=== PATIENT | female | born 1990 | race African-American/Black ===

== ENCOUNTER 2016-10-02 06:23 | Inpatient (IN) ==
[2016-10-02] MEDS ORDERED: ONDANSETRON 4 MG/2 ML VIAL IV PRN (07:11)
[2016-10-02] MEDS ORDERED: MEPERIDINE 50 MG/1 ML VIAL IV PRN (07:11)
[2016-10-02] MEDS ORDERED: LACTATED RINGERS 1,000 ML IV SCH ×2 (07:30→10:00)
[2016-10-02 07:32] LABS: Basophils % 0.1 % (0.0-0.8); Eosinophils % 0.5 % (0.00-10.9); Hematocrit 41.5 VOL% (35.7-47.0); Immature Granulocytes % 0.7 %; Immature Granulocytes Absolute 0.05 #; Lymphocytes # 1.7 10*3/uL (1.4-4.0); Lymphocytes % 22.2 % (21.3-54.2); Mean Corpuscular HGB Conc 33.7 GM/DL (32-36); Mean Corpuscular Hemoglobin 32 PG (27-34); Mean Corpuscular Volume 94.3 FL (87-102); Mean Platelet Volume 11.3 FL (9.6-12.0); Monocytes # 0.6 10*3/uL (0.11-0.8); Monocytes % 7.8 % (1.7-12.7); Neutrophils # 5.2 10*3/uL (1.4-7.4); Neutrophils % 68.7 % (38.7-73.9); Platelet Count 191 T/CUMM (130-400); Red Cell Distribution Width 12.9 % (9.3-17.3); White Blood Count 7.6 T/CUMM (4-12)
[2016-10-02] MEDS ORDERED: DINOPROSTONE VAG GEL 10 MG SYRINGE VAG ONE (07:58)
[2016-10-02 08:01] LABS: Albumin 2.9 G/DL (3.4-5.0); Bilirubin,Total 0.9 MG/DL (0.2-1.0); Calcium 8.9 MG/DL (8.5-10.1); Osmolality,Calculated 274.4 MOS/KG (273-304); Total Protein 7.2 G/DL (6.4-8.3)
[2016-10-02] MEDS: OXYTOCIN/LR 20 UNIT/1,000 ML BAG IV SCH ×2 (09:35→17:49)
[2016-10-02] MEDS ORDERED: FAMOTIDINE 20 MG/2 ML VIAL IV ONE (09:43)
[2016-10-02] MEDS ORDERED: CITRIC ACID/SODIUM CITRATE 30 ML UDCUP PO ONE (09:43)
[2016-10-02] MEDS ORDERED: diphenhydrAMINE 50 MG/1 ML VIAL IV PRN ×2 (09:45)
[2016-10-02] MEDS ORDERED: PROMETHAZINE 25 MG/1 ML VIAL IM ONE (09:45)
[2016-10-02] MEDS ORDERED: ePHEDrine 50 MG/ML AMP IV PRN (09:45)
[2016-10-02] MEDS ORDERED: ONDANSETRON 4 MG/2 ML VIAL IV ONE (09:45)
[2016-10-02] MEDS ORDERED: hydrOXYzine HCL 25 MG/1 ML VIAL IM PRN (09:45)
[2016-10-02] MEDS ORDERED: fentaNYL 2 MCG/ROPIV 0.2% EPID 150 ML EPIDURAL SCH (09:45)
--- NOTE | 2016-10-02 09:50 | OB/GYN History & Physical ---
History of Present Illness Chief complaint: In for elective induction of labor due to term . History of present illness: Ms. Forrest is a 26 year old female 3 para 1 living 1. Her JENIFFER is 2017 for an estimated gestational age of 39 weeks. The patient presents for elective induction of labor due to term . The risk and benefits of been thoroughly discussed with this patient and significant other, plan of care has been discussed with Dr. Laura and all parties are in agreement plan. The patient received her care through the [facility] and she received routine care throughout. Her course was uneventful. She has had a previous vaginal delivery and her largest infant weighing 8 pounds and 4 ounces and she reported no complications with that . labs: O+ , RPR is nonreactive, rubella is immune, hepatitis B is negative, HIV is negative, GBS culture is negative. Review of systems is negative with exception of above. Home Medications Medication Instructions Recorded Confirmed Type Vit No.130/Iron/Folic 1 each PO DAILY 08/09/16 10/02/16 History [ Vitamins] Allergies Allergy/AdvReac Type Severity Reaction Status Date / Time No Known Allergies Allergy Verified 10/02/16 07:10 12 point system: reviewed and no additional remarkable complaints except as stated Medical,Surgical,& Family Hx - Medical History Medical History: noncontributory - Surgical History Surgical History: noncontributory Cardiac Surgeries: Patient Denies: Cardiac Catheterization - Family History Family History: Reports;: Family Diabetes (mgm and pt uncle) Denies;: Family Anesthesia Reaction, Family Cancer, Family Heart Disease, Family Hematology, Family Hypertension, Family Psychiatric Problems, Family Stroke, Additional Family History - Social History Smoking Status: Former smoker Frequency of Alcohol Use: None Type of Drug Use: None Marital Status: Single Lives With:: Significant Other 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 - Constitutional Vitals: Vital Signs Temp Pulse Resp BP 10/02/16 08:00 97.6 F 81 20 112/74 General appearance: no acute distress - Antepartum / Post Antepartum Exam Cervix - Dilatation: 4 cm Effacement: 60% Station: -2 Rupture: Intact Presentation: Vertex Heart Rate: 140s Breast: bilateral: normal Abdomen obstetrics: Present: bowel sounds normal Vagina: Present: normal moisture Uterus exam: Present: enlarged (Gravid) - Respiratory Respiratory exam: Present: clear to auscultation bilaterally - Cardiovascular Cardiovascular exam: Present: regular rate and rhythm - GI/Abdominal GI/Abdominal exam: Present: normal bowel sounds, soft - Extremities Exam Extremities exam: Present: normal inspection - Back Exam Back exam: Present: normal inspection - Neurological Exam Neurological exam: Present: alert, oriented X3 - Psychiatric Psychiatric exam: Present: normal affect, normal mood - Skin Skin exam: Present: normal color, warm Assessment and Plan (1) 39 weeks gestation of Status: Acute Assessment and plan: Admit IV fluids IV Pitocin per protocol Artificial rupture membranes when appropriate Internal monitors if indicated Epidural anesthesia if desired Anticipate Current Visit: Yes Results - Labs CBC & BMP: 10/02/16 07:17 10/02/16 07:17
--- NOTE | 2016-10-02 09:53 | Event Note ---
920: Artificial rupture membranes performed with clear fluid noted. The patient is 4 cm dilated/ 60% effaced/vertex/-1 station. She desires an epidural for pain control
[2016-10-02] MEDS ORDERED: METHYLERGONOVINE 0.2 MG/1 ML AMP ONE (14:59)
[2016-10-02] MEDS ORDERED: miSOPROStol 200 MCG TABLET ONE (14:59)
--- NOTE | 2016-10-02 16:08 | Event Note ---
HPI: Ms. Forrest presented to the labor department for elective induction of labor due to term . The risk and benefits were thoroughly discussed with this patient and significant other, plan of care was discussed with Dr. Laura and all parties were in agreement plan. Stage I: The patient was admitted she received IV fluids and IV Pitocin per protocol. Artificial rupture membranes was performed clear fluid noted. Epidural anesthesia was obtained. The patient progressed in labor with a CAT 1 tracing. She experienced a category 1 tracing for the most part. However, she did have a few episodes of a CAT 2 tracing which was correct with oxygenation and position change. Stage II: The patient was complete and instructed to push. She pushed for approximately 30 minutes after which time a second-degree midline episiotomy was performed. The 's head was then delivered in OP position the mouth and nose were suctioned on the perineum. The remainder of the infant was delivered at 1545, a viable male infant was noted. Apgars were 8 at 1 minute and 9 at 5 minutes. weight was 6 pounds and 8 oz. A cord pH was obtained and sent to the lab. The was placed on the mom's abdomen for skin to skin bonding. Stage III: A spontaneous delivery of a Flores placenta with a three-vessel cord noted. The placenta was examined appeared to be grossly intact. There was a true knot noted in the nuchal cord. Otherwise the placenta was unremarkable. The vagina and cervix was inspected with no additional tears or lacerations noted. The episiotomy was repaired in the usual fashion. Epidural anesthesia remain in effect on repair. Estimated blood loss was approximately 50 cc. At the time of dictation mother and baby are both in stable condition.
[2016-10-02] MEDS ORDERED: ACETAMINOPHEN/CODEINE 300-30 MG TABLET PO PRN (16:11)
[2016-10-02] MEDS ORDERED: LANOLIN 50% CREAM 0.3 OZ TUBE TOP PRN (18:32)
[2016-10-02] MEDS ORDERED: oxyCODONE/ACETAMINOPHEN 5-325 MG TABLET PO PRN ×2 (18:32)
[2016-10-02] MEDS ORDERED: WITCH HAZEL PADS 100/JAR TOP PRN (18:32)
[2016-10-02] MEDS ORDERED: ACETAMINOPHEN 325 MG TABLET PO PRN (18:32)
[2016-10-02] MEDS ORDERED: DIPH/TET/ACEL PERT BOOSTER VACCINE 0.5 ML VIAL IM ONE (18:32)
[2016-10-02] MEDS ORDERED: HYDROCORTISONE 2.5% RECTAL CREAM 30 GM TUBE TOP PRN (18:32)
[2016-10-02] MEDS ORDERED: MEASLES/MUMPS/RUBELLA VACCINE 0.5 ML VIAL SUBCUT ONE (18:32)
[2016-10-02] MEDS ORDERED: BENZOCAINE 20%/MENTHOL 0.5% SPRAY 56 GM CAN TOP PRN (18:32)
[2016-10-02] MEDS ORDERED: BISACODYL 10 MG SUPP RECTAL PRN (18:32)
--- NOTE | 2016-10-02 19:19 | Anesthesia Post-Op ---
Anesthesia Post OP - Post Ansesthetic Evaluation Patient seen in post op: Yes Resp: within normal limits CV: within normal limits Mental: within normal limits Temp: within normal limits [id number]: within normal limits Nausea and Vomiting: within normal limits Pain: within normal limits
[2016-10-02] MEDS: IBUPROFEN 800 MG TABLET PO PRN (19:24)
[2016-10-02] MEDS: DOCUSATE SODIUM 100 MG CAPSULE PO SCH (21:37)
[2016-10-03] MEDS: IBUPROFEN 800 MG TABLET PO PRN ×2 (06:08→19:24)
[2016-10-03 06:26] LABS: Basophils % 0.3 % (0.0-0.8); Eosinophils # 0.1 10*3/uL (0.0-0.87); Eosinophils % 0.9 % (0.00-10.9); Hematocrit 39.5 VOL% (35.7-47.0); Hemoglobin 13.8 GM/DL (12.0-16.0); Immature Granulocytes % 0.4 %; Immature Granulocytes Absolute 0.04 #; Lymphocytes # 1.8 10*3/uL (1.4-4.0); Lymphocytes % 19.2 % (21.3-54.2); Mean Corpuscular HGB Conc 34.9 GM/DL (32-36); Mean Corpuscular Hemoglobin 33 PG (27-34); Mean Corpuscular Volume 94.7 FL (87-102); Mean Platelet Volume 11.3 FL (9.6-12.0); Monocytes # 0.9 10*3/uL (0.11-0.8); Monocytes % 9.3 % (1.7-12.7); Neutrophils # 6.7 10*3/uL (1.4-7.4); Neutrophils % 69.9 % (38.7-73.9); Platelet Count 175 T/CUMM (130-400); Red Blood Count 4.17 MC/CUMM (3.8-5.5); Red Cell Distribution Width 12.8 % (9.3-17.3); White Blood Count 9.6 T/CUMM (4-12)
[2016-10-03] MEDS ORDERED: RHO(D) IMMUNE GLOBULIN 300 MCG SYRINGE IM ONE (08:00)
[2016-10-03] MEDS: DOCUSATE SODIUM 100 MG CAPSULE PO SCH ×2 (09:15→21:35)
--- NOTE | 2016-10-03 09:20 | Progress Note ---
Family Medicine PN Sub Interval history: day #1 Status post Lungs clear, cardiac exam benign, uterus nice and firm. Extremities well with no limits and neurologic grossly intact Assessment plan Status post delivery will continue close observation today possible discharge in a.m. Exam (Progress Note) - Constitutional Vitals: Period Temp Pulse Resp BP Sys/Shay Pulse Ox Last 24 Hr 97.4 F-98.6 F 56-82 18-20 107-127/58-83 95-100 Results - Labs CBC & BMP: 10/03/16 06:14 10/02/16 07:17 Quality Measures - VTE Contraindication to Pharmacological VTE Prophylaxis: Clinical assessment deems Pt at low risk, no prophalaxis needed
[2016-10-04 07:32] VITALS: BP 124/83
[2016-10-04] MEDS: DOCUSATE SODIUM 100 MG CAPSULE PO SCH (09:22)
--- NOTE | 2016-10-04 12:58 | Discharge Summary ---
Hospital Course - Hospital Course Hospital Course: 's status post vaginal day #2 Doing well Abdomen soft, uterus is nice and firm Extremities well within normal limits neurologic grossly intact Assessment plan We will continue with present therapy discharge today follow-up for office in approximately 6 weeks Specialty Discharge - Follow Up or Referrals Follow up with: Caroline Laura MD [Physician] - 11/14/16 9:45 am Discharge Plan - Discharge Medications No Action Vit No.130/Iron/Folic [ Vitamins] 1 each PO DAILY - Follow Up or Referral Follow Up: Caroline Laura MD [Physician] - 11/14/16 9:45 am - Forms/Instructions Instructions: Depression (GEN), Perineal Care (DC), Bleeding (DC), Sitz Bath (DC) Exam - Constitutional Vitals: Period Temp Pulse Resp BP Sys/Shay Pulse Ox Last 24 Hr 96.6 F-97.6 F 58-93 16-20 107-124/64-83 96-99 DS: Provider Date of admission: 10/02/16 06:40 Primary care physician: . No PCP Attending physician on admission: Caroline Laura MD Consults: 10/02/16 07:11 Consult to Anesthesiology [CONS] Routine Consulting Provider: Reason for Anesthesiology: Epidural Consult Comment: Epidural for pain managment 10/02/16 18:32 Consult to Neonatal Nurse Practitioner [CONS] Routine Consult Neonatal Nurse Practitioner: Breast Feeding Discharging clinician: Caroline Laura MD
== END 2016-10-04 13:50 | disposition home or self-care (01) | DRG 560 ==
LOC: N.LDOUT 06:23 → N.LD 06:31 → N.OB 18:32
PROVIDERS: ADMIT Obstetrics & Gynecology; ATTEND Obstetrics & Gynecology

== ENCOUNTER 2018-12-24 06:46 | Inpatient (IN) ==
[2018-12-24] MEDS ORDERED: ONDANSETRON 4 MG/2 ML VIAL IV PRN (07:47)
[2018-12-24] MEDS ORDERED: ONDANSETRON 4 MG/2 ML VIAL IV ONE (07:51)
[2018-12-24] MEDS ORDERED: LACTATED RINGERS 1,000 ML IV ONE (07:51)
[2018-12-24] MEDS ORDERED: CITRIC ACID/SODIUM CITRATE 30 ML UDCUP PO ONE (07:51)
[2018-12-24] MEDS ORDERED: diphenhydrAMINE 50 MG/1 ML VIAL IV PRN ×2 (07:51)
[2018-12-24] MEDS ORDERED: PROMETHAZINE 25 MG/1 ML VIAL IM ONE (07:51)
[2018-12-24] MEDS ORDERED: hydrOXYzine HCL 25 MG/1 ML VIAL IM PRN (07:51)
[2018-12-24] MEDS ORDERED: ePHEDrine 50 MG/ML AMP IV PRN (07:51)
[2018-12-24] MEDS ORDERED: FAMOTIDINE 20 MG TABLET PO ONE (07:51)
[2018-12-24] MEDS ORDERED: NALOXONE 0.4 MG/ML VIAL IV PRN (07:51)
[2018-12-24] MEDS ORDERED: OXYTOCIN/LR 20 UNIT/1,000 ML BAG IV SCH (08:00)
[2018-12-24] MEDS ORDERED: fentaNYL 2 MCG/ROPIV 0.2% EPID 100 ML EPIDURAL SCH (08:00)
[2018-12-24] MEDS ORDERED: LACTATED RINGERS 1,000 ML IV SCH (08:00)
[2018-12-24 08:04] LABS: Basophils % 0.3 % (0.0-0.8); Eosinophils # 0.1 10*3/uL (0.0-0.87); Eosinophils % 1.9 % (0.00-10.9); Hematocrit 37.4 VOL% (35.7-47.0); Immature Granulocytes Absolute 0.07 #; Lymphocytes # 1.5 10*3/uL (1.4-4.0); Lymphocytes % 20.9 % (21.3-54.2); Mean Corpuscular HGB Conc 32.1 GM/DL (32-36); Mean Corpuscular Volume 95.2 FL (87-102); Mean Platelet Volume 11.5 FL (9.6-12.0); Monocytes % 9.4 % (1.7-12.7); Neutrophils % 66.5 % (38.7-73.9); Platelet Count 215 T/CUMM (130-400); Red Blood Count 3.93 MC/CUMM (3.8-5.5); Red Cell Distribution Width 12.8 % (9.3-17.3); White Blood Count 7.3 T/CUMM (4-12)
[2018-12-24 08:28] LABS: Albumin 2.8 G/DL (3.4-5.0); Bilirubin,Total 0.9 MG/DL (0.2-1.0); Calcium 8.4 MG/DL (8.5-10.1); Osmolality,Calculated 273.5 MOS/KG (273-304); Total Protein 6.9 G/DL (6.4-8.3)
[2018-12-24] MEDS ORDERED: FAMOTIDINE 20 MG/2 ML VIAL IV ONE (08:34)
[2018-12-24 11:07] LABS: Apearance,Urine CLEAR (Clear); Bilirubin,Urine Negative (Negative); Blood, Urine Negative (Negative); Glucose,Urine (UA) Negative (Negative); Ketones,Urine 5 mg/dL (Negative); Nitrite,Urine Negative (Negative); Protein,Urine Negative; Squamous Epithelial Cell,Urine Occasional /HPF (0-10); Urine Color Straw (Yellow); Urine Specific Gravity 1.005 (1.001-1.035); Urine Urobilinogen < 2.0 EU/DL (0.2-1.0); WBC,Urine <1 /HPF (0-6)
[2018-12-24] MEDS ORDERED: miSOPROStoL 200 MCG TABLET ONE (12:06)
[2018-12-24] MEDS ORDERED: OXYTOCIN/LR 20 UNIT/1,000 ML BAG IV ONE (12:06)
[2018-12-24] MEDS ORDERED: CARBOPROST TROMETHAMINE 250 MCG/ML AMP IM ONE (12:07)
[2018-12-24] MEDS ORDERED: METHYLERGONOVINE 0.2 MG/1 ML AMP ONE (12:07)
[2018-12-24] MEDS ORDERED: LIDOCAINE 1% 50 ML VIAL ONE (12:14)
[2018-12-24] MEDS ORDERED: BENZOCAINE 20%/MENTHOL 0.5% SPRAY 56 GM CAN TOP PRN (15:23)
[2018-12-24] MEDS ORDERED: BISACODYL 10 MG SUPP RECTAL PRN (15:23)
[2018-12-24] MEDS ORDERED: RHO(D) IMMUNE GLOBULIN 300 MCG SYRINGE IM ONE (15:23)
[2018-12-24] MEDS ORDERED: oxyCODONE/ACETAMINOPHEN 5-325 MG TABLET PO PRN (15:23)
[2018-12-24] MEDS ORDERED: MEASLES/MUMPS/RUBELLA VACCINE 0.5 ML VIAL SUBCUT ONE (15:23)
[2018-12-24] MEDS ORDERED: HYDROCORTISONE 2.5% RECTAL CREAM 30 GM TUBE TOP PRN (15:23)
[2018-12-24] MEDS ORDERED: WITCH HAZEL PADS 100/JAR TOP PRN (15:23)
[2018-12-24] MEDS ORDERED: ACETAMINOPHEN 325 MG TABLET PO PRN (15:23)
[2018-12-24] MEDS ORDERED: DIPH/TET/ACEL PERT BOOSTER VACCINE 0.5 ML VIAL IM ONE (15:23)
[2018-12-24] MEDS ORDERED: LANOLIN 50% CREAM 0.3 OZ TUBE TOP PRN (15:23)
[2018-12-24] MEDS: IBUPROFEN 800 MG TABLET PO PRN (16:47)
[2018-12-24] MEDS: oxyCODONE/ACETAMINOPHEN 5-325 MG TABLET PO PRN (18:09)
[2018-12-24] MEDS: DOCUSATE SODIUM 100 MG CAPSULE PO SCH (20:19)
[2018-12-25] MEDS: IBUPROFEN 800 MG TABLET PO PRN (04:31)
[2018-12-25 05:45] LABS: Basophils % 0.5 % (0.0-0.8); Eosinophils # 0.2 10*3/uL (0.0-0.87); Hematocrit 35.8 VOL% (35.7-47.0); Hemoglobin 11.4 GM/DL (12.0-16.0); Immature Granulocytes % 0.6 %; Immature Granulocytes Absolute 0.05 #; Lymphocytes # 2.5 10*3/uL (1.4-4.0); Mean Corpuscular HGB Conc 31.8 GM/DL (32-36); Mean Corpuscular Volume 96.5 FL (87-102); Mean Platelet Volume 11.3 FL (9.6-12.0); Monocytes % 10.7 % (1.7-12.7); Neutrophils % 54.2 % (38.7-73.9); Platelet Count 201 T/CUMM (130-400); Red Blood Count 3.71 MC/CUMM (3.8-5.5); Red Cell Distribution Width 12.7 % (9.3-17.3)
[2018-12-25] MEDS: DOCUSATE SODIUM 100 MG CAPSULE PO SCH ×2 (09:14→21:32)
[2018-12-25] MEDS: oxyCODONE/ACETAMINOPHEN 5-325 MG TABLET PO PRN ×2 (15:42→22:22)
[2018-12-26 07:28] VITALS: BP 147/85
[2018-12-26] MEDS: DOCUSATE SODIUM 100 MG CAPSULE PO SCH (08:45)
[2018-12-26] MEDS: oxyCODONE/ACETAMINOPHEN 5-325 MG TABLET PO PRN (12:40)
[2018-12-26] MEDS: IBUPROFEN 800 MG TABLET PO PRN (12:40)
== END 2018-12-26 13:05 | disposition home or self-care (01) | DRG 807 ==
LOC: N.LDOUT 06:46 → N.LD 06:48 → N.OB 15:06
PROVIDERS: ADMIT Obstetrics & Gynecology; ATTEND Obstetrics & Gynecology

== ENCOUNTER 2019-01-02 19:20 | Observation (INO) ==
[2019-01-02] MEDS ORDERED: METOCLOPRAMIDE 10 MG/2 ML VIAL IV STA (20:15)
[2019-01-02] MEDS ORDERED: hydrALAZINE 20 MG/1 ML VIAL IV STA ×2 (20:15→21:37)
[2019-01-02] MEDS ORDERED: diphenhydrAMINE 50 MG/1 ML VIAL IV STA (20:16)
[2019-01-02 20:56] LABS: Basophils % 0.6 % (0.0-0.8); Eosinophils # 0.2 10*3/uL (0.0-0.87); Hematocrit 40.8 VOL% (35.7-47.0); Hemoglobin 13.2 GM/DL (12.0-16.0); Immature Granulocytes % 0.4 %; Immature Granulocytes Absolute 0.02 #; Lymphocytes # 2.3 10*3/uL (1.4-4.0); Lymphocytes % 43.2 % (21.3-54.2); Mean Corpuscular HGB Conc 32.4 GM/DL (32-36); Mean Corpuscular Volume 94.7 FL (87-102); Mean Platelet Volume 11.7 FL (9.6-12.0); Monocytes % 10.4 % (1.7-12.7); Neutrophils % 42.4 % (38.7-73.9); Platelet Count 253 T/CUMM (130-400); Red Blood Count 4.31 MC/CUMM (3.8-5.5); Red Cell Distribution Width 12.4 % (9.3-17.3); White Blood Count 5.3 T/CUMM (4-12)
[2019-01-02 21:03] LABS: Apearance,Urine CLEAR (Clear); Bilirubin,Urine Negative (Negative); Blood, Urine Moderate mg/dL (Negative); Glucose,Urine (UA) Negative (Negative); Ketones,Urine Negative (Negative); Mucus,Urine Occasional /LPF (Occasional); Nitrite,Urine Negative (Negative); Protein,Urine Negative; RBC,Urine 1 /HPF (0-4); Squamous Epithelial Cell,Urine Occasional /HPF (0-10); Urine Color Straw (Yellow); Urine Specific Gravity 1.006 (1.001-1.035); Urine Urobilinogen < 2.0 EU/DL (0.2-1.0); WBC,Urine 2 /HPF (0-6)
[2019-01-02 21:15] LABS: Albumin 2.9 G/DL (3.4-5.0); Bilirubin,Total 0.5 MG/DL (0.2-1.0); Calcium 8.8 MG/DL (8.5-10.1); Osmolality,Calculated 279.4 MOS/KG (273-304); Total Protein 6.8 G/DL (6.4-8.3)
[2019-01-02] MEDS ORDERED: MAGNESIUM SULF RIDER 4 GM in PREMIX 1 EACH IV STA (21:51)
[2019-01-02] MEDS ORDERED: ACETAMINOPHEN 325 MG TABLET PO PRN (21:52)
[2019-01-02] MEDS ORDERED: ONDANSETRON 4 MG/2 ML VIAL IV PRN (21:52)
[2019-01-02] MEDS: MAGNESIUM SULF DRIP 40 GM/1,000 ML ML IV SCH (22:30)
[2019-01-02] MEDS ORDERED: KETOROLAC 30 MG/1 ML VIAL IV PRN (23:29)
[2019-01-02] MEDS ORDERED: MORPHINE 10 MG/1 ML VIAL IM ONE (23:29)
[2019-01-03] MEDS: MAGNESIUM SULF DRIP 40 GM/1,000 ML ML IV SCH (15:27)
[2019-01-03] MEDS: IBUPROFEN 800 MG TABLET PO SCH (18:31)
[2019-01-04] MEDS: IBUPROFEN 800 MG TABLET PO SCH ×2 (02:17→10:09)
[2019-01-04 12:44] VITALS: BP 123/84
== END 2019-01-04 16:00 | disposition home or self-care (01) ==
LOC: N.EDINP 19:20 → N.ED 19:20 → N.OB 22:41
PROVIDERS: ADMIT Obstetrics & Gynecology; ATTEND Obstetrics & Gynecology

== ENCOUNTER 2020-06-23 11:04 | Observation (INO) ==
[2020-06-23] MEDS ORDERED: hydrALAZINE 20 MG/1 ML VIAL IV STA (12:41)
[2020-06-23 12:42] LABS: Calcium 8.6 MG/DL (8.5-10.1); Osmolality,Calculated 271.7 MOS/KG (273-304); Potassium 3.9 MMOL/L (3.5-5.1)
[2020-06-23 13:07] LABS: Basophils % 0.8 % (0.0-0.8); Eosinophils % 0.8 % (0.00-10.9); Hematocrit 26.8 VOL% (35.7-47.0); Hemoglobin 7.1 GM/DL (12.0-16.0); Immature Granulocytes % 0.3 %; Immature Granulocytes Absolute 0.01 #; Lymphocytes # 1.8 10*3/uL (1.4-4.0); Lymphocytes % 45.5 % (21.3-54.2); Mean Corpuscular HGB Conc 26.5 GM/DL (32-36); Mean Corpuscular Volume 68.2 FL (87-102); Mean Platelet Volume 11.2 FL (9.6-12.0); Monocytes % 8.1 % (1.7-12.7); Neutrophils % 44.5 % (38.7-73.9); Platelet Count 337 T/CUMM (130-400); Red Blood Count 3.93 MC/CUMM (3.8-5.5); Red Cell Distribution Width 18.6 % (9.3-17.3)
[2020-06-23 13:30] LABS: Eosinophils 2 % (0-10); Lymphocytes 40 % (20-55); Segmented Neutrophils 50 % (50-85); Total Cells Counted 100
[2020-06-23 13:34] LABS: Atypical Lymphocytes Few; Hypochromasia 2+; Microcytosis 2+; Ovalocytes Few; Polychromasia 1+; Target Cells Few
[2020-06-23 13:35] LABS: Acanthocytes Few; Platelet Estimate Increased; Schistocytes Few; Toxic Granulation 1+
[2020-06-23] MEDS ORDERED: hydrALAZINE 20 MG/1 ML VIAL IV PRN (14:14)
[2020-06-23] MEDS ORDERED: DEXTROSE 50% 25 GM/50 ML VIAL IV PRN (14:14)
[2020-06-23] MEDS ORDERED: GLUCAGON 1 MG VIAL IM PRN (14:14)
[2020-06-23] MEDS ORDERED: ACETAMINOPHEN 325 MG TABLET PO PRN (14:14)
[2020-06-23] MEDS ORDERED: SODIUM CHLORIDE 0.9% 1,000 ML IV PRN (14:15)
[2020-06-23 14:18] LABS: Basophils % 0.8 % (0.0-0.8); Eosinophils % 0.8 % (0.00-10.9); Hematocrit 26.8 VOL% (35.7-47.0); Immature Granulocytes % 0.3 %; Immature Granulocytes Absolute 0.01 #; Lymphocytes # 1.8 10*3/uL (1.4-4.0); Lymphocytes % 45.5 % (21.3-54.2); Mean Corpuscular HGB Conc 26.5 GM/DL (32-36); Mean Corpuscular Volume 68.2 FL (87-102); Mean Platelet Volume 11.2 FL (9.6-12.0); Monocytes % 8.1 % (1.7-12.7); Neutrophils % 44.5 % (38.7-73.9); Platelet Count 337 T/CUMM (130-400); Red Blood Count 3.93 MC/CUMM (3.8-5.5); Red Cell Distribution Width 18.6 % (9.3-17.3)
[2020-06-23 14:19] LABS: Hemoglobin 7.1 GM/DL (12.0-16.0)
[2020-06-23 14:21] LABS: Eosinophils 2 % (0-10); Lymphocytes 40 % (20-55); Segmented Neutrophils 50 % (50-85); Total Cells Counted 100
[2020-06-23 14:22] LABS: Acanthocytes Few; Atypical Lymphocytes Few; Hypochromasia 2+; Microcytosis 2+; Ovalocytes Few; Platelet Estimate Increased; Polychromasia 1+; Schistocytes Few; Target Cells Few; Toxic Granulation 1+
[2020-06-23 14:36] LABS: % Iron Saturation 2.6 % (18-50); Ferritin 3.3 ng/ml (8-252)
[2020-06-23 14:40] LABS: Folate 9.53 NG/ML (5.38-24.0); Vitamin B12 489 PG/ML (211-911)
[2020-06-23 15:33] LABS: Sedimentation Rate-Westergren 10 MM/HR (0-20)
[2020-06-23] MEDS: FERROUS SULFATE 325 MG TABLET PO SCH (21:28)
[2020-06-24 06:41] LABS: Basophils # 0.1 10*3/uL (0.0-0.2); Basophils % 1.3 % (0.0-0.8); Eosinophils # 0.1 10*3/uL (0.0-0.87); Eosinophils % 1.5 % (0.00-10.9); Hematocrit 33.5 VOL% (35.7-47.0); Immature Granulocytes % 0.2 %; Immature Granulocytes Absolute 0.01 #; Lymphocytes % 35.8 % (21.3-54.2); Mean Corpuscular HGB Conc 28.4 GM/DL (32-36); Mean Corpuscular Volume 73.6 FL (87-102); Mean Platelet Volume 11.4 FL (9.6-12.0); Monocytes % 10.4 % (1.7-12.7); Neutrophils % 50.8 % (38.7-73.9); Platelet Count 309 T/CUMM (130-400); Red Blood Count 4.55 MC/CUMM (3.8-5.5); Red Cell Distribution Width 21.9 % (9.3-17.3); White Blood Count 5.5 T/CUMM (4-12)
[2020-06-24 06:42] LABS: Hemoglobin 9.5 GM/DL (12.0-16.0)
[2020-06-24 07:55] VITALS: BP 107/66
[2020-06-24] MEDS ORDERED: hydroCHLOROthiazide 12.5 MG CAPSULE PO SCH (09:00)
[2020-06-24] MEDS ORDERED: PANTOPRAZOLE 40 MG TABLET PO SCH (09:00)
[2020-06-24] MEDS: FERROUS SULFATE 325 MG TABLET PO SCH (09:33)
== END 2020-06-24 10:25 | disposition home or self-care (01) ==
LOC: N.EDINP 11:04 → N.ED 11:04 → N.3E 16:30
PROVIDERS: ADMIT Internal Medicine Geriatric Medicine; ATTEND Internal Medicine Geriatric Medicine